=== PATIENT | male | born 1965 | race Two or more races ===

== ENCOUNTER 2023-07-15 10:52 | Emergency (ER) | payer MEDICARE, MEDICAID ==
[~2023-07-15] VITALS: Ht 177.8 cm; Wt 67.8 kg
[2023-07-15 12:12] VITALS: BP 100/67; PULSE 57; RESP 16; TEMP 97.3; O2SAT 98
[2023-07-15] MEDS ORDERED: CEPH500C PO (13:04)
== END 2023-07-15 13:22 | disposition home or self-care (01) ==
LOC: ER 10:52
DX: S50.811A Abrasion of right forearm, initial encounter (principal); E78.5 Hyperlipidemia, unspecified; I10 Essential (primary) hypertension; Z86.718 Personal history of other venous thrombosis and embolism; W06.XXXA Fall from bed, initial encounter; Y93.89 Activity, other specified; Y92.89 Other specified places as the place of occurrence of the external cause; Y99.8 Other external cause status

== ENCOUNTER 2025-04-25 12:57 | Inpatient (IN) | payer MEDICARE, MEDICAID ==
[~2025-04-25] VITALS: Ht 177.8 cm; Wt 98.3 kg
[~2025-04-25 12:57] MED LIST: CEPH500C PO
[2025-04-25 14:17] LABS: Hematocrit 46.5 % (41.0-53.0); Hemoglobin 15.9 g/dL (13.5-17.5); Mean Corpuscular Hemoglobin 31.5 pg (28.0-32.0); Mean Corpuscular Volume 92.5 fL (80.0-100.0); Nucleated Red Blood Cells % 0.2 %
[2025-04-25 14:28] LABS: Potassium 3.8 mmol/L (3.5-5.1); Sodium 142 mmol/L (136-145)
[2025-04-25 14:29] LABS: Anion Gap 9 (5-15); Calcium 9.1 mg/dL (8.7-10.4); Carbon Dioxide 25 mmol/L (20-31)
[2025-04-25 14:30] LABS: Chloride 108 mmol/L (98-107)
[2025-04-25 14:34] LABS: BUN/Creatinine Ratio 11.9 (10.0-20.0); Blood Urea Nitrogen 12 mg/dL (9-23)
[2025-04-25 14:36] LABS: Glucose 122 mg/dL (74-106)
--- NOTE | 2025-04-25 16:49 | ED.PDOC ---
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 Caregiver reports that the patient was being changed out of his diaper last night when a large amount of blood was found in it. Caregiver relays that the patient has no other complaints and when wiped, no further blood was found. Caregiver states patient had some blood in stool at times, but it has always been very minimal speckling of the stool. Patient denies any abdominal pain, N/V/D, dizziness, fever, or chills. Chief Complaint: GI Bleed Time Seen by MD: 16:00 Primary Care Provider: LYNETTE Reviewed Notes: Nurses Notes, Medications, Allergies Allergies: Coded Allergies: NO KNOWN ALLERGIES (Unverified , 07/15/23) Home Meds Active Scripts Cephalexin Monohydrate (Cephalexin) 500 Mg Cap, 1 CAP PO TID, #30 CAP Prov:NIRMAL ARROYO 07/15/23 Information Source: Patient, Friend (caregiver) Mode of Arrival: Ambulatory Timing: Hours Duration: Since onset Prehospital treatment: None Quality: None Vomitus: None Stool: Blood Streaked Severity: Moderate Recent: None Recent Hx of: None Pain Location: None Modifying Factors: Nothing Associated sign and symptoms: Blood in Stool Past Medical History PAST MEDICAL HISTORY: Anxiety, Depression, High Lipids, HTN Surgical History: Denies all surgeries Family History Family History: Reviewed,noncontributory to illness Social History Smoker: Non-Smoker Alcohol: Denies ETOH Use Drugs: Denies Drug Use Lives In: Home Constitutional: denies: chills, diaphoresis, fatigue, fever, malaise, sweats, weakness, others EENTM: denies: blurred vision, double vision, ear bleeding, ear discharge, ear drainage, ear pain, ear ringing, eye pain, eye redness, hearing loss, mouth pain, mouth swelling, nasal discharge, nose bleeding, nose congestion, nose pain, photophobia, tearing, throat pain, throat swelling, voice changes, others Respiratory: denies: cough, hemoptysis, orthopnea, SOB at rest, shortness of breath, SOB with excertion, stridor, wheezing, others Cardiovascular: denies: chest pain, dizzy spells, diaphoresis, Dyspnea on exertion, edema, irregular heart beat, left arm pain, lightheadedness, palpitations, PND, syncope, others Gastrointestinal: reports: blood streaked bowels; denies: abdomen distended, abdominal pain, constipated, diarrhea, dysphagia, difficulty swallowing, hematemesis, melena, nausea, poor appetite, poor fluid intake, rectal bleeding, rectal pain, vomiting, others Genitourinary: denies: burning, dysuria, flank pain, frequency, hematuria, incontinence, penile discharge, penile sore, pain, testicle pain, testicle swelling, urgency, others Neurological: denies: dizziness, fainting, headache, left sided numbness, left sided weakness, numbness, paresthesia, pre-existing deficit, right sided numbness, right sided weakness, seizure, speech problems, tingling, tremors, weakness, others Musculoskeletal: denies: back pain, gout, joint pain, joint swelling, muscle pain, muscle stiffness, neck pain, others Integumetry: denies: bruises, change in color, change in hair/nails, dryness, laceration, lesions, lumps, rash, wounds, others Allergic/Immunocompromised: denies: Difficulty Healing, Frequent Infections, H otis, Itching, others Hematologic/Lymphatic: denies: anemia, blood clots, easy bleeding, easy bruising, swollen glands, others Endocrine: denies: excessive hunger, excessive sweating, excessive thirst, excessive urination, flushing, intolerance to cold, intolerance to heat, unexplained weight gain, unexplained weight loss, others Psychiatric: denies: anxiety, bipolar disorder, depression, hopeless, panic disorder, schizophrenia, sleepless, suicidal, others All Other Systems: Reviewed and Negative Physical Exam General Appearance: No Apparent Distress, Normal HEENT: Normal ENT Inspection, Pharynx Normal, TMs Normal Neck: Full Range of Motion, Non-Tender, Normal, Normal Inspection Respiratory: Chest Non-Tender, Lungs Clear, No Accessory Muscle Use, No Respiratory Distress, Normal Breath Sounds Cardiovascular: No Edema, No JVD, No Murmur, No Gallop, Normal Peripheral Pulses, Regular Rate/Rhythm Breast Exam: Deferred Gastrointestinal: No Organomegaly, Non Tender, No Pulsatile Mass, Normal Bowel Sounds, Soft Genitalia: Deferred Pelvic: Deferred Rectal: Deferred Extremities: No calf tenderness, Normal capillary refill, Normal inspection, Normal range of motion, Non-tender, No pedal edema Musculoskeletal : Apperance: Normal Neurologic: 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 Was a procedure done?: No GI differential Dx Differential Diagnosis: Constipation, Gastritis/PUD, Gastroenteritis, GI hemorrhage, Trauma intraabdominal, Urinary Obstruction, Electrolyte Imbalance, Food Poisoning, Hypovolemia X-Ray, Labs, Meds, VS Vital Signs Date Time Temp Pulse Resp B/P (MAP) Pulse Ox O2 Delivery O2 Flow Rate FiO2 04/25/25 16:44 97.6 68 20 141/80 (100) 95 97.6 04/25/25 12:59 97.3 73 18 117/71 9 97.3 Lab Test 04/25/25 14:03 Range/Units White Blood Count 5.3 4.4-10.8 10^3/uL Red Blood Count 5.03 4.5-5.90 10^6/uL Hemoglobin 15.9 13.5-17.5 g/dL Hematocrit 46.5 41.0-53.0 % Mean Corpuscular Volume 92.5 80.0-100.0 fL Mean Corpuscular Hemoglobin 31.5 28.0-32.0 pg Mean Corpuscular Hemoglobin Concent 34.1 32.0-36.0 g/dL Red Cell Distribution Width 13.5 11.8-14.3 % Platelet Count 160 140-450 10^3/uL Mean Platelet Volume 9.5 6.9-10.8 fL Neutrophils (%) (Auto) 59.7 37.0-80.0 % Lymphocytes (%) (Auto) 27.6 10.0-50.0 % Monocytes (%) (Auto) 10.6 0.0-12.0 % Eosinophils (%) (Auto) 1.5 0.0-7.0 % Basophils (%) (Auto) 0.6 0.0-2.0 % Neutrophils # (Auto) 3.2 1.6-8.6 10 ^3/uL Lymphocytes # (Auto) 1.5 0.4-5.4 10 ^3/uL Monocytes # (Auto) 0.6 0-1.3 10 ^3/uL Eosinophils # (Auto) 0.1 0-0.8 10 ^3/uL Basophils # (Auto) 0 0-0.2 10 ^3/uL Nucleated Red Blood Cells 0.2 % Sodium Level 142 136-145 mmol/L Potassium Level 3.8 3.5-5.1 mmol/L Chloride Level 108 H 98-107 mmol/L Carbon Dioxide Level 25 20-31 mmol/L Anion Gap 9 5-15 Blood Urea Nitrogen 12 9-23 mg/dL Creatinine 1.01 0.700-1.30 mg/dL Glomerular Filtration Rate Calc 86 >90 mL/min BUN/Creatinine Ratio 11.9 10.0-20.0 Serum Glucose 122 H 74-106 mg/dL Calcium Level 9.1 8.7-10.4 mg/dL Time of 1ST Reevaluation: 17:00 Reevaluation 1ST: Unchanged Patient Education/Counseling: Diagnosis, Treatment Family Education/Counseling: Diagnosis, Treatment SEPSIS Sepsis Screen Date sepsis recognized/suspect: Apr 25, 2025 Time Sepsis recognized/suspect: 1300 Recent Procedure: No On Antibiotic Therapy: No Respiratory Rate >20: No Heart Rate >90: No Temp<36 C (96.8 F) or >38.3 C: No SBP <90 or MAP <65 mmHG: No New Acute Mental Status Change: No Is the patient on CPAP, BIPAP,: No Physician Orders Ct Ab Pel With Iv Con Only (04/25/25 16:51) Cefazolin Ancef (04/25/25 18:30) Metronidazole Ivpb Flagyl (04/25/25 18:30) Vital Signs Date Time Temp Pulse Resp B/P (MAP) Pulse Ox O2 Delivery O2 Flow Rate FiO2 04/25/25 16:44 97.6 68 20 141/80 (100) 95 97.6 04/25/25 12:59 97.3 73 18 117/71 9 97.3 Laboratory Tests Test 04/25/25 14:03 White Blood Count 5.3 10^3/uL (4.4-10.8) Departure 1 Departure Time of Disposition: 18:33 (Patient presented with abdominal pain that was concerning for possible appendicits, gastritis, cholecystitis, colitis, gastroenteritis, sbo, or orther possible surgical emergency. Data: 1. I ordered and reviewed the result of at least 3 labs including a CBC, BMP, and Urinalysis. 2. I independently interpreted the following tests: CT Abdoment and Pelvis is concerning for stercoral colitis and inflammatory changes .Risk:This patient has a high risk of morbidity due to further diagnostic testing or treatment and may suffer from an acute abdominal process disorder. Workup reveals stercoral colitis, inflammatory changes, and GI bleed and patient should be admitted for further workup. and possible expert consultation. ) Impression: Primary Impression: Bright red blood per rectum Additional Impression: Stercoral colitis Disposition: ADMITTED INPATIENT Admit to: Med Surg Condition: Serious Critical Care Note Critical Care Time?: Yes Critical care comment: GI Bleed Authorized and Performed by: Yevgeniy Benedict MD Total critical care time: Approximately 39 minutes Due to a high probability of clinically significant, life threatening deterioration, the patient required my highest level of preparedness to intervene emergently and I personally spent this critical care time directly and personally managing the patient. This critical care time included obtaining a history; examining the patient; pulse oximetry; ordering and review of studies; arranging urgent treatment with development of a management plan; evaluation of patient's response to treatment; frequent reassessment; and, discussions with other providers. This critical care time was performed to assess and manage the high probability of imminent, life-threatening deterioration that could result in multi-organ failure. It was exclusive of separately billable procedures and treating other patients and teaching time. Please see my other sections and the rest of the note for further information on patient assessment and treatment. Stability Stability form required: No Heart Score Heart Score: Heart Score Response (Comments) Value History N/A 0 EKG N/A 0 Age N/A 0 Risk Factors N/A 0 Troponin N/A 0 Total 0 I personally scribed for YEVGENIY BENEDICT MD ([email or web address]) on 04/25/25 at 16:49. Electronically submitted by Karel Medrano ([email or web address]). YEVGENIY BENEDICT MD Apr 25, 2025 16:49
--- NOTE | 2025-04-25 18:20 | DVH ---
Exam: CT CT AB PEL WITH IV CON ONLY History: gi bleed Comparison Study: None TECHNIQUE: Multidetector CT of the abdomen and pelvis with IV contrast. Axial, coronal and sagittal m ultiplanar reformats were obtained from the axial data set by the technologist. Radiation Dose Information: CT Dose: CTDI volume is 23.25 mGy. Dose-length product is 1453.88 mGy*cm FINDINGS: Bibasilar atelectasis. Partially visualized heart is unremarkable. Mild hepatomegaly. Otherwise, li jasiel, spleen, gallbladder, pancreas and adrenal glands unremarkable. 1.2 cm and 1.8 cm hypodense right renal lesion which does not measure as simple fluid the Additional Subcentimeter hypodense right renal lesions that are too small to characterize. Otherwise, kidneys, and ureters unremarkable. Mild wall thickening of the minimally distended Urinary bladder which may be due to inadequate distention. Prostate measures 2.8 x 5.5 by 3.7 cm. Stomach is unremarkable. Small bowel loops unremarkable. 1.1 x 0.7 cm hyperdensity overlying the mid appendix which may represent an appendicolith. Otherwise, the appendix is decompressed and unremark able. Large amount of fecal material within the ascending colon and rectum with Distal rectal Mild wa ll thickening. Small amount of fecal material within the remainder of the colon with decompression of the descending colon and sigmoid. No evidence of intraperitoneal free air or free fluid. No evidence of aortic aneurysm or dissection. No significant lymphadenopathy. Small fat containing left inguinal hernia. Soft tissues unremarkable. No evidence of acute osseous ab normalities. Diffuse demineralization. Multilevel anterior bridging osteophytes of the thoracic spi ne. IMPRESSION: Large amount of fecal material within the ascending colon and rectum with mild rectal wall thickening . Correlate for possible stercoral proctitis. Hypodense right renal lesions which do not measure simple fluid. Renal ultrasound is recommended for further evaluation. Mild wall thickening of the urinary bladder which may be due to inadequate distention. Correlation u rinalysis is recommended to exclude cystitis. Additional findings as above.
[2025-04-25 19:59] VITALS: PULSE 65; RESP 16; O2SAT 95
[2025-04-25] MEDS: ceFAZolin 2 GM/D5W50ml 50 ML IV ONE (21:21)
[2025-04-25] MEDS: IOHEXOL 300 MG/ML 100ML BOTTLE IJ ONE (21:21)
[2025-04-25] MEDS ORDERED: DOCUSATE SOD 100 MG CAP PO PRN (23:00)
[2025-04-25] MEDS ORDERED: HYDROcodone-ACET 5/325MG TAB PO PRN (23:00)
[2025-04-25] MEDS ORDERED: ONDANSETRON HCL 4 MG/2 ML VIAL IV PRN (23:00)
[2025-04-25] MEDS ORDERED: ACETAMINOPHEN 325 MG TAB PO PRN (23:00)
--- NOTE | 2025-04-25 23:47 | DVH ---
RENAL ULTRASOUND CLINICAL HISTORY: RENAL LESION TECHNIQUE: Multiple grayscale ultrasound images were obtained through the kidneys and urinary bladder . COMPARISON: None FINDINGS: Right kidney: Measures 11.1 cm. No hydronephrosis. Right lower pole renal cyst measuring 1.5 cm. Left kidney: Measures 11.2 cm. No hydronephrosis. Urinary bladder: Unremarkable. Prevoid volume is 201 mL Increased echogenicity of the visualized liver. IMPRESSION: 1. Normal-sized kidneys without hydronephrosis. 2. Tiny right lower pole renal cyst. 3. Increased echogenicity of the visualized liver suggesting hepatic steatosis.
--- NOTE | 2025-04-25 23:51 | DVHHP2 ---
History of Present Illness Reason for Visit: Stercoral colitis History of Present Illness The patient is a 60-year-old male with past medical history of depression, anxiety, hyperlipidemia, and hypertension who presented to [facility] ED with complaint of GI bleed. As reported by his caregiver, patient was being changed out of his diaper last night when a large amount of blood was found with in his bowels. Caregiver states that the patient has no other complaints, and when wiped, no further blood was found, but reports intermittent blood in stool at times. Patient was seen and evaluated in the ED, laboratory data shows WBC 5.3, hemoglobin 15.9, hematocrit 46.5, platelets 160, sodium 142, potassium 3.8, BUN 12, creatinine 1.01, glucose 122, calcium 9.1, blood pressure 144/84, heart rate 65, temperature 97.7 F, O2 saturation 95% on room air. Abdomen/pelvis CT revealing large amount of fecal material within ascending colon and rectum with mild rectal wall thickening; correlate for possible stercoral proctitis; hypodense right renal lesions which do not measure simple f luid, recommend renal ultrasound. Please see medication section in the computer. On my assessment, patient denied chest pain, headache, no dizziness no diaphoresis, no abdominal pain, no rectal bleed at this moment, no diarrhea, no nausea, no vomiting, no fever, no chills. Patient was admitted for further evaluation and medical management. Past Medical History Anxiety, Depression, High Lipids, HTN Past Surgical History Denies all surgeries Family History Reviewed, noncontributory to the management of this case. Past Social History The patient lives at home, denies smoking, alcohol or illicit drugs abuse. Review of Systems Constitutional: Yes: Weakness; No: Fever, Chills, Sweats, Malaise, Other Eyes: No: Pain, Vision change, Conjunctivae inflammation, Eyelid inflammation, Other, Redness ENT: No: Ear pain, Ear discharge, Nose pain, Nose discharge, Nose congestion, Mouth pain, Mouth swelling, Throat pain, Throat swelling, Other Respiratory: No: Cough, Dry, Shortness of breath, SOB with excertion, Wheezing, Hemoptysis, Pleuritic Pain, Sputum, Wheezing, Other Cardiovascular: No: Chest Pain, Palpitations, Orthopnea, Paroxysmal Noc. Dyspnea, Edema, Lt Headedness, Other Gastrointestinal: Other (Blood streak bowels); No: Nausea, Vomiting, Abdominal Pain, Diarrhea, Constipation, Melena, Hematochezia Genitourinary: No Dysuria, No Frequency, No Incontinence, No Hematuria, No Retention, No Other Musculoskeletal: No: other, neck pain, shoulder pain, arm pain, back pain, hand pain, leg pain, foot pain Skin: No: Rash, Lesions, Jaundice, Bruising, Other Neurological: No: Weakness, Numbness, Incoordination, Change in speech, Confusion, Seizures, Other Allergies: Coded Allergies: NO KNOWN ALLERGIES (Unverified , 07/15/23) Medications Current Medications Medications Dose Ordered Sig/Calvin Route Start Time Stop Time Status Last Admin Dose Admin Ceftriaxone Sodium 50 ml @ 100 mls/hr DAILY@09 IV 04/26/25 09:00 Metronidazole 100 ml @ 100 mls/hr Q8HR IV 04/26/25 06:00 Sodium Chloride 10 ml Q8HR IV 04/26/25 06:00 Acetaminophen/ Hydrocodone Bitart 1 tab Q4HP PRN PO 04/25/25 23:00 Ondansetron HCl 4 mg Q4HP PRN IV 04/25/25 23:00 Docusate Sodium 100 mg BIDPRN PRN PO 04/25/25 23:00 Acetaminophen 650 mg Q6HP PRN PO 04/25/25 23:00 Exam Vital Signs Vital Signs Date Time Temp Pulse Resp B/P (MAP) Pulse Ox O2 Delivery O2 Flow Rate FiO2 04/25/25 19:59 97.7 65 16 145/84 (104) 95 97.7 04/25/25 19:59 Room Air* 0 21 General Appearance: Alert, Oriented X3, Cooperative, No acute distress HEENT: Atraumatic, PERRLA, EOMI Respiratory: Normal air movement Cardiovascular: Regular rate, Normal S1, Normal S2, No murmurs Abdominal: Normal bowel sounds, Soft, No tenderness, No hepatospenomegaly, No masses Extremities: No clubbing, No cyanosis, No edema, Normal pulses, No tenderness/swelling Skin: No rashes, No significant lesion Neuro: Normal speech, Normal tone, Sensation intact, Cranial nerves 3-12 NL, Reflexes 2+, Other (Weakness) Psych/Mental Status: Mental status NL, Mood NL Labs/Xrays Labs Test 04/25/25 14:03 Range/Units White Blood Count 5.3 4.4-10.8 10^3/uL Red Blood Count 5.03 4.5-5.90 10^6/uL Hemoglobin 15.9 13.5-17.5 g/dL Hematocrit 46.5 41.0-53.0 % Mean Corpuscular Volume 92.5 80.0-100.0 fL Mean Corpuscular Hemoglobin 31.5 28.0-32.0 pg Mean Corpuscular Hemoglobin Concent 34.1 32.0-36.0 g/dL Red Cell Distribution Width 13.5 11.8-14.3 % Platelet Count 160 140-450 10^3/uL Mean Platelet Volume 9.5 6.9-10.8 fL Neutrophils (%) (Auto) 59.7 37.0-80.0 % Lymphocytes (%) (Auto) 27.6 10.0-50.0 % Monocytes (%) (Auto) 10.6 0.0-12.0 % Eosinophils (%) (Auto) 1.5 0.0-7.0 % Basophils (%) (Auto) 0.6 0.0-2.0 % Neutrophils # (Auto) 3.2 1.6-8.6 10 ^3/uL Lymphocytes # (Auto) 1.5 0.4-5.4 10 ^3/uL Monocytes # (Auto) 0.6 0-1.3 10 ^3/uL Eosinophils # (Auto) 0.1 0-0.8 10 ^3/uL Basophils # (Auto) 0 0-0.2 10 ^3/uL Nucleated Red Blood Cells 0.2 % Sodium Level 142 136-145 mmol/L Potassium Level 3.8 3.5-5.1 mmol/L Chloride Level 108 H 98-107 mmol/L Carbon Dioxide Level 25 20-31 mmol/L Anion Gap 9 5-15 Blood Urea Nitrogen 12 9-23 mg/dL Creatinine 1.01 0.700-1.30 mg/dL Glomerular Filtration Rate Calc 86 >90 mL/min BUN/Creatinine Ratio 11.9 10.0-20.0 Serum Glucose 122 H 74-106 mg/dL Calcium Level 9.1 8.7-10.4 mg/dL PATIENT: LIGIA FLORES ACCT: [id number] UNIT: [id number] : 1965 LOC: ER ROOM / BED: / AGE / SEX: 60 / M ADM STATUS: REG ER SERVICE 1651 ORDERING PHYSICIAN: YEVGENIY MASSEY MD PROCEDURE(s): ABPLIV - CT AB PEL WITH IV CON ONLY REASON: gi bleed ORDER NUMBER(s): [id number], ACCESSION NUMBER(s): [id number] Exam: CT CT AB PEL WITH IV CON ONLY History: gi bleed Comparison Study: None TECHNIQUE: Multidetector CT of the abdomen and pelvis with IV contrast. Axial, coronal and sagittal multiplanar reformats were obtained from the axial data set by the technologist. Radiation Dose Information: CT Dose: CTDI volume is 23.25 mGy. Dose-length product is 1453.88 mGy*cm FINDINGS: Bibasilar atelectasis. Partially visualized heart is unremarkable. Mild hepatomegaly. Otherwise, liver, spleen, gallbladder, pancreas and adrenal glands unremarkable. 1.2 cm and 1.8 cm hypodense right renal lesion which does not measure as simple fluid the Additional Subcentimeter hypodense right renal lesions that are too small to characterize. Otherwise, kidneys, and ureters unremarkable. Mild wall thickening of the minimally distended Urinary bladder which may be due to inadequate distention. Prostate measures 2.8 x 5.5 by 3.7 cm. Stomach is unremarkable. Small bowel loops unremarkable. 1.1 x 0.7 cm hyperdensity overlying the mid appendix which may represent an appendicolith. Otherwise, the appendix is decompressed and unremarkable. Large amount of fecal material within the ascending colon and rectum with Distal rectal Mild wall thickening. Small amount of fecal material within the remainder of the colon with decompression of the descending colon and sigmoid. No evidence of intraperitoneal free air or free fluid. No evidence of aortic aneurysm or dissection. No significant lymphadenopathy. Small fat containing left inguinal hernia. Soft tissues unremarkable. No evidence of acute osseous abnormalities. Diffuse demineralization. Multilevel anterior bridging osteophytes of the thoracic spine. IMPRESSION: Large amount of fecal material within the ascending colon and rectum with mild rectal wall thickening. Correlate for possible stercoral proctitis. Hypodense right renal lesions which do not measure simple fluid. Renal ultrasound is recommended for further evaluation. Mild wall thickening of the urinary bladder which may be due to inadequate distention. Correlation urinalysis is recommended to exclude cystitis. Additional findings as above. ORDERING PHYSICIAN: ELVA DOBBINS DNP PROCEDURE(s): KIDUS - KIDNEY REASON: RENAL LESION ORDER NUMBER(s): [id number], ACCESSION NUMBER(s): [id number] RENAL ULTRASOUND CLINICAL HISTORY: RENAL LESION TECHNIQUE: Multiple grayscale ultrasound images were obtained through the kidneys and urinary bladder. COMPARISON: None FINDINGS: Right kidney: Measures 11.1 cm. No hydronephrosis. Right lower pole renal cyst measuring 1.5 cm. Left kidney: Measures 11.2 cm. No hydronephrosis. Urinary bladder: Unremarkable. Prevoid volume is 201 mL Increased echogenicity of the visualized liver. IMPRESSION: 1. Normal-sized kidneys without hydronephrosis. 2. Tiny right lower pole renal cyst. 3. Increased echogenicity of the visualized liver suggesting hepatic steatosis. SEPSIS Sepsis Screen Date sepsis recognized/suspect: Apr 25, 2025 Time Sepsis recognized/suspect: 1300 Recent Procedure: No On Antibiotic Therapy: No Respiratory Rate >20: No Heart Rate >90: No Temp<36 C (96.8 F) or >38.3 C: No SBP <90 or MAP <65 mmHG: No New Acute Mental Status Change: No Is the patient on CPAP, BIPAP,: No Physician Orders Ct Ab Pel With Iv Con Only (04/25/25 16:51) Ceftriaxone 1gm/50ml (Rocephin) (04/26/25 09:00) Metronidazole 500mg/100ml (Flagyl 500mg/ (04/26/25 06:00) Allergies (04/25/25 22:57) Code Status (04/25/25 22:57) Sodium Chloride Lock (Saline Lock Ns) (04/26/25 06:00) Oxygen Per Hour (04/25/25 22:57) Hydrocodone-Acet 5/325mg Tab (Kramer 5/32 (04/25/25 23:00) Docusate Sodium Capsule (Colace Capsule) (04/25/25 23:00) Complete Blood Count (04/26/25 04:00) Comprehensive Metabolic Panel (04/26/25 04:00) Cardiac Diet-2gna,Lofat,Lochol (04/26/25 Breakfast) Condition: Serious (04/25/25 22:57) Acetaminophen Tablet (Tylenol Tablet) (04/25/25 23:00) Bedrest With Bathroom Privileg (04/25/25 22:57) Sequential Compression Device (04/25/25 ) Ondansetron Hcl (Zofran) (04/25/25 23:00) Kidney (04/25/25 22:57) Vital Signs Date Time Temp Pulse Resp B/P (MAP) Pulse Ox O2 Delivery O2 Flow Rate FiO2 04/25/25 19:59 97.7 65 16 145/84 (104) 95 97.7 04/25/25 19:59 65 16 95 Room Air* 0 21 04/25/25 19:27 97.7 65 16 145/84 (104) 95 97.7 04/25/25 16:44 97.6 68 20 141/80 (100) 95 97.6 Laboratory Tests Test 04/25/25 14:03 White Blood Count 5.3 10^3/uL (4.4-10.8) Medications Medications Dose Ordered Sig/Calvin Route Start Time Stop Time Status Last Admin Dose Admin Cefazolin Sodium/ Dextrose 50 ml @ 50 mls/hr ONCE ONCE IV 04/25/25 18:30 04/25/25 19:29 DC 04/25/25 21:21 50 MLS/HR Metronidazole 100 ml @ 100 mls/hr ONCE ONCE IV 04/25/25 18:30 04/25/25 19:29 DC 04/25/25 19:36 100 MLS/HR Assessment/Plan Assessment/Plan Stercoral colitis Bright red blood per rectum Plan 1. Admit to med surge unit 2. Breathing treatment 3. Pain control management 4. IV antibiotic management 5. Management of fluids and electrolytes 6. Consultation for hospitalist 7. Diagnostic test abdomen/pelvis CT 8. DVT prophylaxis-on SCDs 9. Repeat labs CBC, CMP in a.m. 10. Home medication reviewed and reconciled 11. Continue with current medical management 12. Treatment plan discussed with patient and RN. Patient verbalized understanding. Plan discussed with: Patient, Other (RN) My Orders Orders - ELVA DOBBINS DNP Procedure Category Date Status Time Ceftriaxone 1gm/50ml PHA 04/26/25 In Process (Rocephin) 09:00 Metronidazole PHA 04/26/25 In Process 500mg/100ml (Flagyl 06:00 Allergies HONORIO 04/25/25 In Process 22:57 Code Status CODE 04/25/25 Transmitted 22:57 Sodium Chloride Lock PHA 04/26/25 In Process (Saline Lock Ns) 06:00 Oxygen Per Hour RT 04/25/25 Transmitted 22:57 Hydrocodone-Acet PHA 04/25/25 In Process 5/325mg Tab (Kramer 23:00 Docusate Sodium PHA 04/25/25 In Process Capsule (Colace 23:00 Complete Blood Count LAB 04/26/25 Verified 04:00 Comprehensive LAB 04/26/25 Verified Metabolic Panel 04:00 Cardiac DIET 04/26/25 Transmitted Diet-2gna,Lofat,Lochol Breakfast Condition: Serious HONORIO 04/25/25 In Process 22:57 Acetaminophen Tablet PHA 04/25/25 In Process (Tylenol Tablet) 23:00 Bedrest With Bathroom HONORIO 04/25/25 In Process Privileg 22:57 Sequential HONORIO 04/25/25 In Process Compression Device Ondansetron Hcl PHA 04/25/25 In Process (Zofran) 23:00 Kidney US 04/25/25 Resulted 22:57 Problem List: (1) Stercoral colitis (2) Bright red blood per rectum Date of Service: Apr 25, 2025 Billing Provider: ELVA DOBBINS DNP Common Visit Codes: [id number] INP/OBS CARE (HIGH) ELVA DOBBINS DNP Apr 25, 2025 23:51
[2025-04-26] VITALS (8 sets, daily range): BP systolic 123–141; BP diastolic 59–86; PULSE 62–76; RESP 16–18; TEMP 96.3–98; O2SAT 93–97
[2025-04-26] MEDS ORDERED: NITROGLYCERIN 0.4 MG SL TAB SL PRN
[2025-04-26] MEDS ORDERED: MORPHINE SULFATE INJ 2 MG/ml SYRG IV PRN
[2025-04-26] MEDS ORDERED: [UNRECOGNIZED DRUG - CODE] OR (03:50)
[2025-04-26] MEDS ORDERED: LORA-354 PO (03:50)
[2025-04-26] MEDS ORDERED: CLON-853 PO (03:50)
[2025-04-26] MEDS ORDERED: DONE1TAB88 PO (03:50)
[2025-04-26] MEDS ORDERED: [UNRECOGNIZED DRUG - CODE] MT (03:50)
[2025-04-26] MEDS ORDERED: LACO100T3 PO (03:50)
[2025-04-26] MEDS ORDERED: QUET100T47 PO (03:50)
[2025-04-26] MEDS ORDERED: CRAN400T6 PO (03:50)
[2025-04-26] MEDS ORDERED: ACET-1881 PO (03:50)
[2025-04-26] MEDS: SODIUM CHLOR 0.9% PF (SALINE LOCK) 10ML VIAL/SYR IV SCH (05:35)
[2025-04-26 06:38] LABS: Hematocrit 45.0 % (41.0-53.0); Hemoglobin 15.6 g/dL (13.5-17.5); Mean Corpuscular Hemoglobin 31.8 pg (28.0-32.0); Mean Corpuscular Volume 91.6 fL (80.0-100.0); Nucleated Red Blood Cells % 0.1 %
[2025-04-26 06:53] LABS: Alkaline Phosphatase 80 U/L (46-116); Anion Gap 9 (5-15); BUN/Creatinine Ratio 12.9 (10.0-20.0); Blood Urea Nitrogen 11 mg/dL (9-23); Calcium 9.1 mg/dL (8.7-10.4); Carbon Dioxide 26 mmol/L (20-31); Chloride 106 mmol/L (98-107); Glucose 88 mg/dL (74-106); Potassium 3.6 mmol/L (3.5-5.1); Sodium 141 mmol/L (136-145); Total Protein 7.4 g/dL (5.7-8.2)
[2025-04-26 06:54] LABS: Albumin 4.5 g/dL (3.2-4.8); Bilirubin, Total 0.4 mg/dL (0.2-1.0)
[2025-04-26 07:01] LABS: Alanine Aminotransferase 50 U/L (7-40)
[2025-04-26] MEDS ORDERED: POLY335015 PO (13:38)
[2025-04-26] MEDS ORDERED: [UNRECOGNIZED DRUG - CODE] PO (13:40)
--- NOTE | 2025-04-26 16:36 | DVHPN2 ---
Progress Note Date Seen: Apr 26, 2025 Medical Necessity Reason Pt with a Central, PICC or Fol: No Subjective Patient reports: No new complaints Review of Systems: :Abnormal (Constipation) Objective vital signs Vital Sign Date Time Temp Pulse Resp B/P (MAP) Pulse Ox O2 Delivery O2 Flow Rate FiO2 04/26/25 13:00 98.0 68 17 141/84 (103) 94 98.0 04/26/25 08:00 Room Air* 0 21 Total Intake and Output 04/25/25 04/25/25 04/26/25 14:59 22:59 06:59 Intake Total 120 ml Balance 120 ml medications Current Medications Medications Dose Ordered Sig/Calvin Route Start Time Stop Time Status Last Admin Dose Admin Ceftriaxone Sodium 50 ml @ 100 mls/hr DAILY@09 IV 04/26/25 09:00 04/26/25 09:42 100 MLS/HR Metronidazole 100 ml @ 100 mls/hr Q8HR IV 04/26/25 06:00 04/26/25 14:45 100 MLS/HR Sodium Chloride 10 ml Q8HR IV 04/26/25 06:00 04/26/25 14:00 10 ML Acetaminophen/ Hydrocodone Bitart 1 tab Q4HP PRN PO 04/25/25 23:00 Ondansetron HCl 4 mg Q4HP PRN IV 04/25/25 23:00 Docusate Sodium 100 mg BIDPRN PRN PO 04/25/25 23:00 Acetaminophen 650 mg Q6HP PRN PO 04/25/25 23:00 Nitroglycerin 0.4 mg Q5MINP PRN SL 04/26/25 00:00 Morphine Sulfate 2 mg Q30M PRN IV 04/26/25 00:00 Quetiapine Fumarate 100 mg BID PO 04/26/25 22:00 UNV Bisacodyl 5 mg DAILYP PRN PO 04/26/25 16:45 UNV Sodium Biphosphate/ Sodium Phosphate 135 ml DAILY PRN DE 04/26/25 16:45 UNV Lactulose 30 ml Q8HR PO 04/26/25 22:00 UNV Examination: GENERAL:Normal, HEENT:Normal, NECK:Normal, LUNGS:Normal, CVS:Normal, ABDOMEN:Normal, MSK:Normal, SKIN:Normal, NEURO:Normal (Awake, alert, answer questions, developmental delay. Strength and sensory intact) laboratory and microbiology Laboratory Tests 04/26/25 05:26 Test 04/26/25 05:26 Range/Units Serum Glucose 88 74-106 mg/dL Problem List/Assessment/Plan Problems(with codes): (1) Stercoral colitis Problem List/Assessment/Plan Stercoral colitis Bright red blood per rectum depression anxiety hyperlipidemia hypertension CT abdomen and pelvis shows constipation and impaction Resume home meds Per caregiver the patient does ambulance and half daily bowel movement Start lactulose t.i.d., Fleet enema tamsulosin and p.r.n. Dulcolax and Colace IV fluids Resume home meds Full code Lovenox for DVT prophylaxis No GI prophylaxis needed Plan discussed with: Patient My Orders My Orders Orders - ROGE VALDIVIA MD Procedure Category Date Status Time Quetiapine Fumarate PHA 04/26/25 Logged Tablet (Seroquel Tab 22:00 Pharmacy To Reconcile ORDERS 04/26/25 Transmitted Home Med 16:31 Bisacodyl Ec Tablet PHA 04/26/25 Logged (Dulcolax Ec Tablet) 16:45 Fleet Enema Adult PHA 04/26/25 Logged 16:45 Fleet Mineral Oil PHA 04/26/25 Logged Enema 16:45 Lactulose Oral PHA 04/26/25 Transmitted 22:00 (Nf) Clonazepam PHA 04/26/25 Verified 22:00 (Nf) Donepezil PHA 04/27/25 Verified Hydrochloride 10:00 (Nf) Lacosamide PHA 04/26/25 Verified 22:00 Date of Service: Apr 26, 2025 Billing Provider: ROGE VALDIVIA MD Common Visit Codes: [id number] INP/OBS CARE(HIGH) ROGE VALDIVIA MD Apr 26, 2025 16:36
[2025-04-26] MEDS ORDERED: BISACODYL 5 MG EC TAB PO PRN (16:45)
[2025-04-26] MEDS: FLEET MINERAL OIL ENEMA 133 ML PR ONE (16:45)
[2025-04-26] MEDS ORDERED: FLEET ENEMA(ADULT) 135 ML PR PRN (16:45)
[2025-04-26] MEDS: SODIUM CHLORIDE 0.9% 1,000 ML IV SCH (18:16)
[2025-04-26] MEDS: LACTULOSE 20Gm/30ML SOLN PO SCH (21:19)
[2025-04-26] MEDS: LACOSAMIDE 50 MG TAB PO SCH (21:20)
[2025-04-26] MEDS: clonazePAM 0.5 MG TAB PO SCH (21:20)
[2025-04-27 01:00] VITALS: BP 133/80; PULSE 68; RESP 18; TEMP 97.1; O2SAT 94
[2025-04-27 05:00] VITALS: BP 144/94; PULSE 72; RESP 16; TEMP 98.4; O2SAT 91
[2025-04-27 08:00] VITALS: PULSE 63; RESP 18; O2SAT 92
[2025-04-27 09:00] VITALS: BP 137/80; PULSE 63; RESP 18; TEMP 97.7; O2SAT 92
[2025-04-27] MEDS: DONEPEZIL HYDROCHLORIDE 5 MG TAB PO SCH (10:17)
[2025-04-27 12:53] VITALS: BP 130/77; PULSE 68; RESP 17; TEMP 98.1; O2SAT 93
[2025-04-27 13:40] LABS: Hematocrit 45.7 % (41.0-53.0); Hemoglobin 15.8 g/dL (13.5-17.5); Mean Corpuscular Hemoglobin 31.8 pg (28.0-32.0); Mean Corpuscular Volume 92.2 fL (80.0-100.0); Nucleated Red Blood Cells % 0.0 %
[2025-04-27 14:08] LABS: Albumin 4.2 g/dL (3.2-4.8); Alkaline Phosphatase 77 U/L (46-116); Anion Gap 9 (5-15); BUN/Creatinine Ratio 13.6 (10.0-20.0); Bilirubin, Total 0.5 mg/dL (0.2-1.0); Blood Urea Nitrogen 12 mg/dL (9-23); Calcium 9.0 mg/dL (8.7-10.4); Carbon Dioxide 25 mmol/L (20-31); Glucose 98 mg/dL (74-106); Potassium 4.1 mmol/L (3.5-5.1); Sodium 143 mmol/L (136-145); Total Protein 6.8 g/dL (5.7-8.2)
[2025-04-27 14:09] LABS: Chloride 109 mmol/L (98-107)
--- NOTE | 2025-04-27 14:09 | DVH ---
Date: 04/27/2025 11:44 AM Examination: XY KUB ABDOMEN SINGLE VIEW History: severe constipation Comparison: None TECHNIQUE: Frontal views of the abdomen was obtained. FINDINGS: Bowel gas pattern is unremarkable. The lung bases are unremarkable. No acute osseous abnormality identified. IMPRESSION: Nonobstructive bowel gas pattern. Large stool burden
[2025-04-27 14:26] LABS: Alanine Aminotransferase 52 U/L (7-40)
--- NOTE | 2025-04-27 16:45 | DVHDS2 ---
Discharge Summary Date of Admission Apr 25, 2025 at 23:49 Date of Discharge: Apr 27, 2025 Labs/Diagnostic Data: Laboratory Results Test 04/27/25 13:12 White Blood Count 6.0 10^3/uL (4.4-10.8) Red Blood Count 4.96 10^6/uL (4.5-5.90) Hemoglobin 15.8 g/dL (13.5-17.5) Hematocrit 45.7 % (41.0-53.0) Mean Corpuscular Volume 92.2 fL (80.0-100.0) Mean Corpuscular Hemoglobin 31.8 pg (28.0-32.0) Mean Corpuscular Hemoglobin Concent 34.5 g/dL (32.0-36.0) Red Cell Distribution Width 13.4 % (11.8-14.3) Platelet Count 155 10^3/uL (140-450) Mean Platelet Volume 9.3 fL (6.9-10.8) Neutrophils (%) (Auto) 66.3 % (37.0-80.0) Lymphocytes (%) (Auto) 21.2 % (10.0-50.0) Monocytes (%) (Auto) 11.1 % (0.0-12.0) Eosinophils (%) (Auto) 1.0 % (0.0-7.0) Basophils (%) (Auto) 0.4 % (0.0-2.0) Neutrophils # (Auto) 3.9 10 ^3/uL (1.6-8.6) Lymphocytes # (Auto) 1.3 10 ^3/uL (0.4-5.4) Monocytes # (Auto) 0.7 10 ^3/uL (0-1.3) Eosinophils # (Auto) 0.1 10 ^3/uL (0-0.8) Basophils # (Auto) 0 10 ^3/uL (0-0.2) Nucleated Red Blood Cells 0.0 % Sodium Level 143 mmol/L (136-145) Potassium Level 4.1 mmol/L (3.5-5.1) Chloride Level 109 mmol/L (98-107) Carbon Dioxide Level 25 mmol/L (20-31) Anion Gap 9 (5-15) Blood Urea Nitrogen 12 mg/dL (9-23) Creatinine 0.88 mg/dL (0.700-1.30) Glomerular Filtration Rate Calc 99 mL/min (>90) BUN/Creatinine Ratio 13.6 (10.0-20.0) Serum Glucose 98 mg/dL (74-106) Calcium Level 9.0 mg/dL (8.7-10.4) Total Bilirubin 0.5 mg/dL (0.2-1.0) Aspartate Amino Transferase (AST) 25 U/L (13-40) Alanine Aminotransferase (ALT) 52 U/L (7-40) Alkaline Phosphatase 77 U/L (46-116) Total Protein 6.8 g/dL (5.7-8.2) Albumin 4.2 g/dL (3.2-4.8) Other Laboratory Tests 04/27/25 13:12 Brief Hx & Hospital Course: The patient is a 60-year-old male with past medical history of depression, anxiety, hyperlipidemia, and hypertension who presented to [facility] ED with complaint of GI bleed. As reported by his caregiver, patient was being changed out of his diaper last night when a large amount of blood was found with in his bowels. Caregiver states that the patient has no other complaints, and when wiped, no further blood was found, but reports intermittent blood in stool at times. Patient was seen and evaluated in the ED, laboratory data shows WBC 5.3, hemoglobin 15.9, hematocrit 46.5, platelets 160, sodium 142, potassium 3.8, BUN 12, creatinine 1.01, glucose 122, calcium 9.1, blood pressure 144/84, heart rate 65, temperature 97.7 F, O2 saturation 95% on room air. Abdomen/pelvis CT revealing large amount of fecal material within ascending colon and rectum with mild rectal wall thickening; correlate for possible stercoral proctitis; hypodense right renal lesions which do not measure simple fluid, recommend renal ultrasound. In the floor patient started on Dulcolax and lactulose. On the the patient had multiple small bowel movement. Today patient had watery diarrhea. Lactulose. . Patient is medically stable to be discharged with Dulcolax daily and lactulose p.r.n. for constipation and discontinue if have diarrhea. Condition at Discharge: Stable Final Diagnosis/Problems List Stercoral colitis Fecal impaction Problems List: (1) Stercoral colitis Status: Acute Discharge Disposition: Residential [facility] Discharge Instruct/Medications Diet: Regular Activity: No Restrictions, As Tolerated Care Plan: Start taking Dulcolax 5 mg p.o. daily for constipation. Discontinue if having diarrhea. May take lactulose 15 mL after 3 times a day for constipation. Discontinue if have diarrhea Scheduled Cephalexin Monohydrate (Cephalexin), 1 CAP PO TID Clonazepam (Clonazepam), 1 TAB PO BID, (Reported) Cranberry (Cranberry), 400 MG PO BS, (Reported) Diphenhydramine HCl (Allergy Relief), 25 MG PO BID, (Reported) Donepezil Hydrochloride (Donepezil Hcl), 10 MG PO DAILY, (Reported) Lacosamide (Lacosamide), 100 MG PO BID, (Reported) Loratadine (Sb Loratadine Allergy Rel), 1 TAB PO DAILY, (Reported) Mouthwashes (Biotene Dry Mouth Gentle), 1 LIQ MT BID, (Reported) Multiple Minerals W/ Vitamins (Evelio Mag Zinc +D3), 1 OR DAILY, (Reported) Quetiapine Fumerate (Quetiapine Fumarate), 100 MG PO BID, (Reported) Scheduled PRN Polyethylene Glycol 3350 (Miralax), 17 GM PO DAILY PRN for FOR CONSTIPATION, (Reported) Miscellaneous Medications Acetaminophen (Acetaminophen), 325 MG PO, (Reported) 55 Discharge Statement: "Patient was advised to return to the ER or call 911 if any headaches, dizziness, shortness of breath, chest pain, abdominal pain, bleeding, fevers, or worsening of medical condition. Patient was counseled about treatment plan, medications, possible side effects, patientverbalized understanding. All questions were answered to the best of my ability. This discharge took greater then 30 minutes in planning, reviewing documentation, counseling the patient, and discussing with other team members." ASSESSMENT ASSESSMENT Assessment Date of Service: Apr 27, 2025 Billing Provider: ROGE VALDIVIA MD Common Visit Codes: [id number]/OBS DISCH DAY >30min ROGE VALDIVIA MD Apr 27, 2025 16:45
[2025-04-27] MEDS ORDERED: BISA-13 PO (16:54)
[2025-04-27] MEDS ORDERED: LACT10SO3 PO (16:54)
[2025-04-27 17:00] VITALS: BP 134/80; PULSE 78; RESP 18; TEMP 97.7; O2SAT 91
== END 2025-04-27 18:25 | disposition home or self-care (01) | DRG 392 ==
LOC: ER 12:57 → OVERFLOW 23:49 → EAST 04-26 03:15
PROVIDERS: ADMIT Internal Medicine; ATTEND Internal Medicine
DX: K52.89 Other specified noninfective gastroenteritis and colitis (principal); F32.A Depression, unspecified; F41.9 Anxiety disorder, unspecified; E78.5 Hyperlipidemia, unspecified; I10 Essential (primary) hypertension; K56.41 Fecal impaction
CPT/HCPCS: 36415; 74018; 74177; 76775; 80048; 80053; 85025; 96365; G0378; J3490

== ENCOUNTER 2025-05-05 14:29 | Emergency (ER) | payer MEDICARE, MEDICAID ==
[~2025-05-05] VITALS: Ht 170.2 cm; Wt 93.7 kg
[~2025-05-05 14:29] MED LIST changes: +ACET-1881 PO; +BISA-13 PO; -CEPH500C PO; +CLON-853 PO; +CRAN400T6 PO; +DONE1TAB88 PO; +LACO100T3 PO; +LACT10SO3 PO; +LORA-354 PO; +POLY335015 PO; +QUET100T47 PO; +[UNRECOGNIZED DRUG - CODE] MT; +[UNRECOGNIZED DRUG - CODE] OR; +[UNRECOGNIZED DRUG - CODE] PO
[2025-05-05] MEDS ORDERED: MUPI2CRE17 EX (15:51)
--- NOTE | 2025-05-05 15:51 | ED.PDOC ---
Musculoskeletal HPI Comments Patient is accompanied by his caregiver and presents with a chief complaint of an abrasion to the right forearm that was noticed three days ago The cause of the wound is unclear but it may be due to self scratching or contact with the an object. Patient has been managing for the wound with a triple antibiotic ointment. The nurse expressed concern for potential infection which prompted today's visit Patient has a MHx mild intellectual disability, anxiety, depression, ADHD, hyperlipidemia, hypertension, dementia Chief Complaint: Upper Extremity Time Seen by MD: 15:16 Primary Care Provider: LYNETTE Reviewed Notes: Nurses Notes, Medications, Allergies Allergies: Coded Allergies: NO KNOWN ALLERGIES (Unverified , 07/15/23) Home Meds Active Scripts Mupirocin Calcium (Topical) (MUPIROCIN) 2 % Cre, 1 APPLIC EX BID for 5 Days, #30 GRAMS 0 Refills Prov:AMANDA MCCOLLUM VAMP SEAMER 05/05/25 Lactulose (Lactulose) 10 Gm/15 Ml Sharee, 10 GM PO TID PRN for 30 Days, #600 ML 1 Refill Prov:MATT PARISI RESIDENT 04/27/25 Bisacodyl (Dulcolax) 5 Mg Tab, 5 MG PO DAILY PRN, #30 TAB 1 Refill Prov:MATT PARISI RESIDENT 04/27/25 Reported Medications Diphenhydramine HCl (Allergy Relief) 25 Mg/10 Ml Liq, 25 MG PO BID for Allergies, LIQ 04/26/25 Polyethylene Glycol 3350 (Miralax) 17 Gm Pow, 17 GM PO DAILY PRN for FOR CONSTIPATION, POW 04/26/25 Acetaminophen (Acetaminophen) 325 Mg Tab, 325 MG PO for pain or cody >100.4 for 30 Days, MG 0 Refills 04/26/25 Lacosamide (Lacosamide) 100 Mg Tab, 100 MG PO BID for seizures, TAB 04/26/25 Donepezil Hydrochloride (DONEPEZIL HCL) 10 Mg Tab, 10 MG PO DAILY for dementia for 30 Days, MG 04/26/25 Loratadine (Sb Loratadine Allergy Rel) 10 Mg Tab, 1 TAB PO DAILY for allergies, #30 TAB 5 Refills 04/26/25 Cranberry (CRANBERRY) 400 Mg Tab, 400 MG PO BS for supplement, TAB 04/26/25 Multiple Minerals W/ Vitamins (STEPHANIA MAG ZINC +D3) +D3 Tab, 1 OR DAILY for supplement, TAB 04/26/25 Mouthwashes (Biotene Dry Mouth Gentle) 1 Liq Liq, 1 LIQ MT BID for dry mouth, LIQ 04/26/25 Quetiapine Fumerate (QUETIAPINE FUMARATE) 100 Mg Tab, 100 MG PO BID for agression for 30 Days, MG 04/26/25 Clonazepam (Clonazepam) 1 Mg Tab, 1 TAB PO BID for seizures, #60 TAB 1 Refill 04/26/25 Information Source: Patient Mode of Arrival: Ambulatory Past Medical History PAST MEDICAL HISTORY: Anxiety, Depression, High Lipids, HTN Surgical History: Denies all surgeries Family History Family History: Reviewed,noncontributory to illness Social History Smoker: Non-Smoker Alcohol: Denies ETOH Use Drugs: Denies Drug Use Lives In: Home All Other Systems: Reviewed and Negative (Per HPI) Physical Exam General Appearance: No Apparent Distress, Normal HEENT: Normal ENT Inspection, Pharynx Normal, TMs Normal Neck: Full Range of Motion, Non-Tender, Normal, Normal Inspection Respiratory: Chest Non-Tender, Lungs Clear, No Accessory Muscle Use, No Respiratory Distress, Normal Breath Sounds Cardiovascular: No Edema, No JVD, No Murmur, No Gallop, Normal Peripheral Pulses, Regular Rate/Rhythm Breast Exam: Deferred Gastrointestinal: No Organomegaly, Non Tender, No Pulsatile Mass, Normal Bowel Sounds, Soft Genitalia: Deferred Pelvic: Deferred Rectal: Deferred Extremities: No calf tenderness, Normal capillary refill, Normal inspection, Normal range of motion, Non-tender, No pedal edema Musculoskeletal : Apperance: Normal Neurologic: Alert, hat lacer II-XII nml as Tested, No Motor Deficits, Normal Affect, Normal Mood, No Sensory Deficits Cerebellar Function: Normal Reflexes: Normal Skin: Dry, Normal Color, Warm Lymphatic: No Adenopathy Was a procedure done? Was a procedure done?: No Images 1 - 1 cm abrasion. Fluctuance. Differential Diagnosis EXT Differential Diagnosis: Other X-Ray, Labs, Meds, VS Vital Signs Date Time Temp Pulse Resp B/P (MAP) Pulse Ox O2 Delivery O2 Flow Rate FiO2 05/05/25 15:54 98.2 70 16 142/76 (98) 96 98.2 05/05/25 15:54 70 17 96 Room Air 05/05/25 14:32 98.6 97 16 144/89 95 98.6 X-Ray, Labs, Meds, VS Comment Empiric treatment Patient is stable for discharge at this time. External notes reviewed. Test results and diagnostic imaging interpreted. All diagnostic findings, discharge care, education and instructions provided Follow-up with PCP in 2 to 3 days Patient verbalized understanding and agreed to treatment plan Vital signs stable, afebrile, no acute distress noted Patient ambulatory with strong steady gait Advised to return precautions for any new or worsening symptoms, return to ER immediately for re-evaluation Patient is aware that the purpose of this visit was for an acute medical emergency requiring emergent stabilization. Chronic conditions, including malignancies have not been ruled out. Patient is instructed to follow up with PCP as directed and discharge instructions for continued care and workup. If unable to arrange follow-up, patient is to return to the emergency department for reassessment. Patient (parent or legal guardian if applicable) was given verbal and written discharge instructions and acknowledges understanding. Time of 1ST Reevaluation: 15:30 Reevaluation 1ST: Improved Patient Education/Counseling: Diagnosis, Treatment Family Education/Counseling: Diagnosis, Treatment Departure 1 Departure Time of Disposition: 15:50 Impression: Primary Impression: Abrasion of forearm, right Qualified Codes: S50.811A - Abrasion of right forearm, initial encounter Disposition: HOME / SELF CARE / HOMELESS Condition: Stable e-Prescriptions Mupirocin Calcium (Topical) (MUPIROCIN) 2 % Cre 1 APPLIC EX BID for 5 Days, #30 GRAMS 0 Refills Prov: AMANDA MCCOLLUM NP 05/05/25 Discharged With: Self Critical Care Note Critical Care Time?: No Stability Stability form required: No Heart Score Heart Score: Heart Score Response (Comments) Value History N/A 0 EKG N/A 0 Age N/A 0 Risk Factors N/A 0 Troponin N/A 0 Total 0 AMANDA MCCOLLUM NP May 05, 2025 15:51
[2025-05-05 15:54] VITALS: BP 142/76; PULSE 70; RESP 17; TEMP 98.2; O2SAT 96
== END 2025-05-05 16:01 | disposition home or self-care (01) ==
LOC: ER 14:29
DX: S50.811A Abrasion of right forearm, initial encounter (principal); E78.5 Hyperlipidemia, unspecified; F32.A Depression, unspecified; I10 Essential (primary) hypertension; Z79.899 Other long term (current) drug therapy; X58.XXXA Exposure to other specified factors, initial encounter; Y93.89 Activity, other specified; Y92.89 Other specified places as the place of occurrence of the external cause; Y99.8 Other external cause status